=== PATIENT | female | born 1995 | race Caucasian/White ===

== ENCOUNTER 2020-04-26 23:52 | Observation (INO) | payer MEDICAID ==
[~2020-04-26] VITALS: Ht 170.2 cm; Wt 108.9 kg
[2020-04-27] MEDS ORDERED: PNV1TABL50 PO (00:15)
[2020-04-27] MEDS ORDERED: CALC-1042 PO (00:20)
[2020-04-27] MEDS ORDERED: FERR-71 PO (00:20)
== END 2020-04-27 02:00 | disposition home or self-care (01) ==
LOC: 8 EST LDRP 23:52
PROVIDERS: ADMIT Obstetrics & Gynecology; ATTEND Obstetrics & Gynecology
DX: O62.9 Abnormality of forces of labor, unspecified (principal); Z3A.39 39 weeks gestation of pregnancy
CPT/HCPCS: 59025; G0378; 99281

== ENCOUNTER 2020-04-27 20:00 | Inpatient (IN) | payer MEDICAID ==
[~2020-04-27] VITALS: Ht 170.2 cm; Wt 108.9 kg
[~2020-04-27 20:00] MED LIST: CALC-1042 PO; FERR-71 PO; PNV1TABL50 PO
[2020-04-27 21:33] LABS: CLARITY URINE CLEAR (CLEAR); COLOR URINE YELLOW (YELLOW); KETONES URINE NEGATIVE (NEGATIVE); LEUKOCYTE ESTERASE URINE 1+ (NEGATIVE); NITRITE URINE NEGATIVE (NEGATIVE); OCCULT BLOOD URINE NEGATIVE (NEGATIVE); PROTEIN URINE NEGATIVE (NEGATIVE); SPECIFIC GRAVITY URINE 1.023 (1.005-1.030)
[2020-04-27 21:36] LABS: BASOPHILS % 1.1 % (0.0-2.0); EOSINOPHILS % 0.7 % (0.0-5.0); HEMATOCRIT. 38.4 % (36.0-48.0); HEMOGLOBIN. 13.1 g/dL (12.0-16.0); LYMPHOCYTES % 25.4 % (20.0-50.0); MEAN CORPUSCULAR HEMOGLOBIN 30.9 pg (28.0-32.0); MEAN CORPUSCULAR VOLUME 90.9 fL (81.0-99.0); MEAN PLATELET VOLUME 10.2 fl (7.4-10.4); MONOCYTES % 8.5 % (2.0-8.0); NEUTROPHILS % 64.3 % (40.0-76.0); PLATELET 222 x1000/uL (130-400); RED BLOOD CELL COUNT 4.22 mill/uL (4.2-5.4); RED CELL DISTRIBUTION WIDTH 13.4 % (11.6-14.6)
[2020-04-27 21:37] LABS: CHLORIDE 109 mEq/L (98-107)
[2020-04-27 21:45] LABS: INR 0.9; PROTHROMBIN TIME 9.2 sec (9.6-11.0)
[2020-04-27 21:50] LABS: *AMPHETAMINES SCREEN URINE NEGATIVE (NEGATIVE); *BARBITURATES SCREEN URINE NEGATIVE (NEGATIVE); *BENZODIAZEPINES SCREEN URINE NEGATIVE (NEGATIVE); *COCAINE SCREEN URINE NEGATIVE (NEGATIVE); METHADONE URINE SCREEN NEGATIVE (NEGATIVE); OPIATES URINE SCREEN NEGATIVE (NEGATIVE); PHENCYCLIDINE URINE SCREEN NEGATIVE (NEGATIVE)
[2020-04-27 21:51] LABS: CANNABINOID URINE SCREEN NEGATIVE (NEGATIVE)
[2020-04-27] MEDS: BUTORPHANOL TARTRATE 2 MG/ML VIAL IM PRN (21:57)
[2020-04-27] MEDS: LACTATED RINGERS 1,000 ML IV SCH (21:58)
[2020-04-27] MEDS ORDERED: PENICILLIN G POTASSIUM 5 MMU in DEXT 5% WATER 100 ML IV NR (22:30)
[2020-04-27 23:14] LABS: HEPATITIS B SURFACE ANTIGEN NEGATIVE
[2020-04-28] MEDS ORDERED: ONDANSETRON HCL 4MG/2ML INJ IV PRN ×2 (00:45→05:15)
[2020-04-28] MEDS: LACTATED RINGERS 1,000 ML IV SCH ×3 (00:52→06:20)
[2020-04-28] MEDS: BUTORPHANOL TARTRATE 2 MG/ML VIAL IM PRN (00:57)
[2020-04-28] MEDS ORDERED: ROPIVACAINE HCL/PF 0.2% (2MG/ML) EPID 200ML EPI SCH (02:30)
[2020-04-28] MEDS ORDERED: EPHEDRINE SULFATE 50MG/ML VIAL ONE (02:36)
[2020-04-28] MEDS ORDERED: BUPIVACAINE HCL/PF 0.25% (2.5MG/ML) 10ML ONE (02:36)
[2020-04-28] MEDS ORDERED: SODIUM CHLORIDE 0.9% 10ML VIAL ONE (02:36)
[2020-04-28] MEDS ORDERED: FENTANYL CITRATE/PF 50MCG/ML 2ML VIAL ONE (02:36)
[2020-04-28] MEDS: PENICILLIN G POTASSIUM 2.5 MMU in DEXTROSE 5% WATER 50 ML IV SCH ×3 (03:10→13:14)
[2020-04-28] MEDS ORDERED: METOCLOPRAMIDE HCL 10MG/2ML VIAL IV SCH (06:00)
[2020-04-28] MEDS: DEXT 5%/LR + PITOCIN 20UNITS/L 1,000 ML IV SCH ×2 (10:03→17:43)
[2020-04-28 18:24] VITALS: BP 136/74
[2020-04-28 18:47] VITALS: BP 124/71
[2020-04-28 19:48] VITALS: BP 137/81
[2020-04-28] MEDS ORDERED: BISACODYL 10MG SUPP PR PRN (23:00)
[2020-04-28] MEDS ORDERED: HEMORRHOIDAL SUPP PR PRN (23:00)
[2020-04-28] MEDS ORDERED: DEXT 5%/LR + PITOCIN 20UNITS/L 1,000 ML IV SCH (23:00)
[2020-04-28] MEDS ORDERED: IBUPROFEN 400MG TABLET PO PRN (23:00)
[2020-04-28] MEDS ORDERED: LANOLIN OINT 7GM TUBE TOP PRN (23:00)
[2020-04-28] MEDS ORDERED: IBUPROFEN 800MG TABLET PO PRN (23:00)
[2020-04-28] MEDS ORDERED: BENZOCAINE/LANOLIN/ALOE VERA SPRAY TOP PRN (23:00)
[2020-04-28] MEDS ORDERED: ACETAMINOPHEN WITH CODEINE 300/30MG TABLET PO PRN (23:00)
[2020-04-28] MEDS ORDERED: DIPHENHYDRAMINE 25MG CAPSULE PO PRN (23:00)
[2020-04-28] MEDS ORDERED: GLYCERIN/WITCH HAZEL LEAF MEDICATED PAD TOP PRN (23:00)
[2020-04-28 23:25] VITALS: BP 134/72
[2020-04-29 06:21] LABS: BASOPHILS % 0.3 % (0.0-2.0); EOSINOPHILS % 0.6 % (0.0-5.0); HEMOGLOBIN. 12.2 g/dL (12.0-16.0); LYMPHOCYTES % 22.6 % (20.0-50.0); MEAN CORPUSCULAR VOLUME 91.9 fL (81.0-99.0); MONOCYTES % 9.2 % (2.0-8.0); NEUTROPHILS % 67.3 % (40.0-76.0); PLATELET 198 x1000/uL (130-400); RED BLOOD CELL COUNT 3.92 mill/uL (4.2-5.4); RED CELL DISTRIBUTION WIDTH 13.7 % (11.6-14.6)
[2020-04-29] MEDS: MAGNESIUM/ALUMINUM HYDROXIDE/SIMETHICONE 30ML UDC PO SCH ×2 (07:30→12:30)
[2020-04-29 08:00] VITALS: BP 98/50
[2020-04-29] MEDS: SIMETHICONE 80MG TABLET CHEW PO SCH ×2 (08:00→13:00)
[2020-04-29] MEDS: FERROUS SULFATE 325MG TABLET PO SCH ×2 (08:37→12:30)
[2020-04-29] MEDS ORDERED: PRENATAL VIT/FE FUMARATE/FA TABLET PO SCH (09:00)
[2020-04-29 16:30] VITALS: BP 100/56
[2020-04-29] MEDS ORDERED: DOCUSATE SODIUM 100MG CAPSULE PO SCH (21:00)
== END 2020-04-29 18:45 | disposition home or self-care (01) | DRG 560 ==
LOC: 8 EST LDRP 20:00 → OBSVTOIN 20:00 → 8 EST LDRP 21:50 → 8EST 04-28 18:00
PROVIDERS: ADMIT Obstetrics & Gynecology; ATTEND Obstetrics & Gynecology
PROC: 10E0XZZ Delivery of Products of Conception, External Approach (ICD-10-PCS; principal; 2020-04-29)
PROC: 3E0R3BZ Introduction of Anesthetic Agent into Spinal Canal, Percutaneous Approach (ICD-10-PCS; 2020-04-29)
DX: O80 Encounter for full-term uncomplicated delivery (principal); Z3A.40 40 weeks gestation of pregnancy; Z37.0 Single live birth; Z79.899 Other long term (current) drug therapy
CPT/HCPCS: 36415; 80053; 80305; 81003; 84550; 85025; 85384; 86592; 86703; 86762; 86850; 86900; 87340; 99281; G0378; J0595; J2405; J2540; J2590; J2765; J2795; J3010; J3490; J7060; A4315